=== PATIENT | female | born 1995 | race Caucasian/White ===

== ENCOUNTER 2022-10-18 15:24 | Emergency (ER) | payer OTHER ==
[~2022-10-18] VITALS: Ht 170.2 cm; Wt 90.9 kg
[2022-10-18 15:27] VITALS: BP 137/84
[2022-10-18] MEDS ORDERED: ketorolac trometh inj. 60 MG/2 ML VIAL IM ONE (18:05)
[2022-10-18] MEDS ORDERED: amox tr/potassium clavulanate 875/125mg TAB PO ONE (18:05)
[2022-10-18] MEDS ORDERED: IBUP-1986 PO (18:36)
[2022-10-18] MEDS ORDERED: AMOX-117 PO (18:36)
== END 2022-10-18 19:11 | disposition home or self-care (01) ==
LOC: ER 15:25
DX: S61.451A Open bite of right hand, initial encounter (principal); W54.0XXA Bitten by dog, initial encounter; Y93.89 Activity, other specified; Y92.89 Other specified places as the place of occurrence of the external cause; Y99.8 Other external cause status
CPT/HCPCS: 29130; 73130; 96372; 99283; J1885; 29125